=== PATIENT | male | born 1960 | race Caucasian/White ===

== ENCOUNTER 2017-12-01 23:06 | Observation (INO) | payer OTHER ==
[2017-12-01] MEDS ORDERED: Sodium Chloride 0.9% 10 ML Syringe FLUSH PRN (23:10)
[2017-12-01] MEDS ORDERED: Haloperidol Lactate 5 MG/ML SDV IM ONE (23:12)
[2017-12-01] MEDS ORDERED: Diazepam 5 MG/ML 10 ML Vial MDV IM ONE (23:13)
[2017-12-01 23:52] LABS: ANION GAP 32.6 mmol/L (10-20); CHLORIDE,CL 100 mmol/L (98-107); SODIUM,NA 138 mmol/L (136-145)
[2017-12-02] MEDS ORDERED: Haloperidol Lactate 5 MG/ML SDV IM ONE (00:06)
[2017-12-02] MEDS ORDERED: Sodium Chloride 0.9% 1,000 ML IV ONE (00:07)
[2017-12-02] MEDS: Lactated Ringers 1,000 ML IV SCH ×4 (00:18→11:36)
[2017-12-02] MEDS ORDERED: Diazepam 5 MG Tab PO PRN (00:52)
[2017-12-02] MEDS: Thiamine 100 MG Tab PO SCH ×2 (02:35→08:15)
[2017-12-02] MEDS: Pantoprazole 40 MG Tab.CR PO SCH ×2 (02:35→06:28)
[2017-12-02] MEDS: Folic Acid 1 MG Tab PO SCH ×2 (02:35→08:15)
[2017-12-02] MEDS: Multivitamins with Iron/Calcium/Folic Acid/Minerals Tab PO SCH ×2 (02:35→08:15)
[2017-12-02] MEDS: Enoxaparin 40 MG/0.4 ML Syringe SUBCUT SCH ×3 (02:37→20:42)
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
[2017-12-02] MEDS ORDERED: LORazepam 1 MG Tab PO PRN (06:12)
[2017-12-02] MEDS ORDERED: cloNIDine 0.1 MG Tab PO PRN (06:52)
[2017-12-02 08:10] LABS: CHLORIDE,CL 106 mmol/L (98-107); SODIUM,NA 139 mmol/L (136-145)
[2017-12-02 08:11] LABS: ANION GAP 13.2 mmol/L (10-20)
[2017-12-02] MEDS ORDERED: Flumazenil 0.1 MG/ML 5 ML MDV IVPUSH PRN (10:37)
[2017-12-02] MEDS: Nicotine 21 MG/24 Hr Patch TRDERM SCH (12:39)
[2017-12-02] MEDS ORDERED: Magnesium Sulfate/Water 2 GM in Premix Bag 1 BAG IV ONE (16:08)
[2017-12-02] MEDS ORDERED: D5 1/2 NS w/ 40 mEq/L KCl 1,000 ML IV SCH (16:15)
[2017-12-03] MEDS: Pantoprazole 40 MG Tab.CR PO SCH (07:05)
[2017-12-03] MEDS: Folic Acid 1 MG Tab PO SCH (08:03)
[2017-12-03] MEDS: Thiamine 100 MG Tab PO SCH (08:04)
[2017-12-03] MEDS: Multivitamins with Iron/Calcium/Folic Acid/Minerals Tab PO SCH (08:04)
[2017-12-03] MEDS: Nicotine 21 MG/24 Hr Patch TRDERM SCH (08:04)
--- NOTE | 2017-12-03 08:43 | PCM.DCSUM1 ---
Discharge Summary - Hospital Course Free Text/Narrative:: Patient admitted observation Sunday12/01/17 for alcohol withdrawal and seizure activity. Brief History: Patient admitted Sunday evening December 01, 2017. He was at a family reunion when he did begin to have possible seizure activity. He is a long time drinker and his last drink was reported to have been on November. Dwight was admitted for hydration and DT monitoring. While here he did have hypokalemia with hypomagnesemia, this was treated with IV magnesium and potassium. CIWA Scores have remained stable at 2-4 over the last 12 hours and he is requesting to be discharged. Diagnosis: Stroke: No - Discharge Data Discharge Date: 12/03/17 Discharge Disposition: Home, Self-Care 01 Condition: Good - Discharge Diagnosis/Problem(s) (1) Alcohol withdrawal syndrome SNOMED Code(s): 340133415 ICD Code: F10.239 - ALCOHOL DEPENDENCE WITH WITHDRAWAL, UNSPECIFIED Status : Acute Priority: Medium Current Visit: Yes Qualifiers: Complication of substance-induced condition: with delirium Qualified Code(s ): F10.231 - Alcohol dependence with withdrawal delirium - Patient Summary/Data Consults: Consultations 12/02/17 01:01 Consult to Operator Technician [CONS] Routine Recommended Follow-up Testing/Procedures: You do need to follow up with your primary doctor back in [place]. I would advise that to be this week. Stay well hydrated. If you have any additional tremors, seizures, or hallucinations, please make sure to be seen immediately. You should remain alcohol free. Surround yourself with people who do not use alcohol as a coping mechanism. Please call us if you have any questions or concerns. - Patient Instructions Diet: Usual Diet as Tolerated Activity: As Tolerated Driving: Do Not Drive Showering/Bathing: May Shower - Discharge Plan *PRESCRIPTION DRUG MONITORING PROGRAM REVIEWED*: Not Applicable *COPY OF PRESCRIPTION DRUG MONITORING REPORT IN PATIENT [place]: Not Applicable Home Medications: Home Meds . [No Known Home Meds] 12/01/17 [History] Patient Handouts: Alcohol Abuse and Nutrition, Alcohol Withdrawal, [id number] , Finding Treatment for Addiction Forms: ED Department Discharge Referrals: PCP,Unobtain [Primary Care Provider] - - Discharge Summary/Plan Comment DC Time >30 min.: Yes - General Info Date of Service: 12/03/17 Admission Dx/Problem (Free Text: alcohol withdrawal Functional Status: Reports: Pain Controlled, Tolerating Diet, Ambulating, Urinating. Denies: New Symptoms - Review of Systems General: Reports: No Symptoms HEENT: Reports: No Symptoms Pulmonary: Reports: No Symptoms Cardiovascular: Reports: No Symptoms Gastrointestinal: Reports: No Symptoms Genitourinary: Reports: No Symptoms Musculoskeletal: Reports: No Symptoms Skin: Reports: No Symptoms Neurological: Reports: No Symptoms Psychiatric: Reports: No Symptoms - Patient Data Vitals - Most Recent: Last Vital Signs Temp 36.6 C 12/03/17 05:53 Pulse 69 12/03/17 05:53 Resp 18 12/03/17 05:53 BP 133/85 12/03/17 05:53 Pulse Ox 98 12/03/17 05:53 Weight - Most Recent: 67.132 kg I&O - Last 24 hours: Intake & Output 12/02/17 12/03/17 12/03/17 22:59 06:59 14:59 Intake Total 2955 1395 Output Total 550 Balance 2955 845 Lab Results - Last 24 hrs: Laboratory Results - last 24 hr 12/02/17 12/03/17 Range/Units 07:30 06:58 WBC 5.3 (4.0-10.0) x10^3/uL RBC 4.13 L (4.5-6.0) x10^6/uL Hgb 13.2 L (14.0-18.0) g/dL Hct 38.6 L (40.0-52.0) % MCV 93.5 H (78.0-93.0) fL MCH 32.0 (26.0-32.0) pg MCHC 34.2 (32.0-36.0) g/dL RDW Coeff of Devante 15.6 H (10.0-15.0) % Plt Count 113 L (130-400) x10^3/uL Magnesium 1.7 L (1.8-2.4) mg/dL Med Orders - Current: Current Medications Clonidine HCl (Catapres) 0.1 mg PO Q4H PRN PRN Reason: Agitation Last Admin: 12/02/17 09:27 Dose: 0.1 mg Enoxaparin Sodium (Lovenox) 40 mg SUBCUT BEDTIME [facility]AY[facility] Last Admin: 12/02/17 20:42 Dose: 40 mg Flumazenil (Romazicon) 0.2 mg IVPUSH ONETIME PRN PRN Reason: Dyspnea Potassium Chloride/Dextrose/Sod Cl (D5 1/2 Ns W/ 40 Meq/L Kcl) 1,000 mls @ 250 mls/hr IV ASDIRECTED [facility] Last Admin: 12/02/17 16:42 Dose: 250 mls/hr Lorazepam (Ativan) 1 mg PO Q2H PRN PRN Reason: Agitation Last Admin: 12/02/17 09:26 Dose: 1 mg Multivitamins/Minerals (Thera M Plus) 1 tab PO DAILY [facility] Last Admin: 12/03/17 08:04 Dose: 1 tab Nicotine (Habitrol) 21 mg TRDERM DAILY [facility] Last Admin: 12/03/17 08:04 Dose: Not Given Pantoprazole Sodium (Protonix) 40 mg PO ACBRK [facility] Last Admin: 12/03/17 07:05 Dose: 40 mg Sodium Chloride (Saline Flush) 10 ml FLUSH ASDIRECTED PRN PRN Reason: Keep Vein Open Thiamine HCl (Vitamin B-1) 100 mg PO DAILY [facility] Last Admin: 12/03/17 08:04 Dose: 100 mg Discontinued Medications Diazepam (Valium) 10 mg IM STAT ONE Stop: 12/01/17 23:14 Last Admin: 12/01/17 23:08 Dose: 10 mg Diazepam (Valium.) 5 mg PO QID PRN PRN Reason: Agitation Last Admin: 12/02/17 02:35 Dose: 5 mg Folic Acid (Folic Acid) 1 mg PO DAILY [facility] Stop: 12/03/17 08:01 Last Admin: 12/03/17 08:03 Dose: 1 mg Haloperidol Lactate (Haldol) 10 mg IM STAT ONE Stop: 12/01/17 23:13 Last Admin: 12/02/17 00:20 Dose: Not Given Haloperidol Lactate (Haldol) 5 mg IM STAT ONE Stop: 12/02/17 00:07 Last Admin: 12/02/17 00:17 Dose: 5 mg Sodium Chloride (Normal Saline) 1,000 mls @ 500 mls/hr IV ONETIME ONE Stop: 12/02/17 02:06 Last Admin: 12/01/17 23:15 Dose: 500 mls/hr Lactated Ringer's (Ringers, Lactated) 1,000 mls @ 250 mls/hr IV ASDIRECTED JAYANT Last Admin: 12/02/17 11:36 Dose: 250 mls/hr Magnesium Sulfate 2 gm/ Premix 50 mls @ 25 mls/hr IV ONETIME ONE Stop: 12/02/17 18:07 Last Admin: 12/02/17 16:42 Dose: 25 mls/hr - Exam General: Reports: Alert, Oriented, Cooperative, No Acute Distress HEENT: Reports: Pupils Equal, Pupils Reactive Neck: Reports: Supple Lungs: Reports: Clear to Auscultation, Normal Respiratory Effort Cardiovascular: Reports: Regular Rate, Regular Rhythm GI/Abdominal Exam: Normal Bowel Sounds, Soft, Non-Tender, No Organomegaly, No Distention, No Abnormal Bruit, No Mass, Pelvis Stable Extremities: Normal Inspection, Normal Range of Motion, Non-Tender, No Pedal Edema, Normal Capillary Refill Skin: Reports: Warm, Dry, Intact Neurological: Reports: No New Focal Deficit Psy/Mental Status: Reports: Anxious
== END 2017-12-03 09:10 | disposition home or self-care (01) ==
LOC: VM.ED 23:06 → VM.MS 12-02 00:24 → UNDOADMOB 12-02 00:25 → UNDODISOB 12-03 09:10
PROVIDERS: ADMIT Physician Assistant; ATTEND Physician Assistant
DX: F10.239 Alcohol dependence with withdrawal, unspecified (principal); E87.6 Hypokalemia; E83.42 Hypomagnesemia; K74.60 Unspecified cirrhosis of liver; J44.9 Chronic obstructive pulmonary disease, unspecified; J01.00 Acute maxillary sinusitis, unspecified; F17.210 Nicotine dependence, cigarettes, uncomplicated; Z88.1 Allergy status to other antibiotic agents
CPT/HCPCS: 36415; 70450; 80053; 80305-QW; 80346; 81001; 83735; 84100; 84443; 84484; 85025; 85027; 85610; 86140; 93005; 96360; 96361; 96372; 96374; 99285; A9270-GY; G0378; G0480; J1630; J1650; J3360; J3475; J3480; J7030; J7120